=== PATIENT | male | born 1980 | race Caucasian/White ===

== ENCOUNTER 2020-12-22 06:41 | Inpatient (IN) | payer MEDICAID, SELFPAY ==
[2020-12-22] VITALS (17 sets, daily range): BP systolic 98–124; BP diastolic 56–76; PULSE 70–165; RESP 10–27; TEMP 35.8–37.2; O2SAT 88–100; BMI 26.6; BMI 29.5
--- NOTE | ~2020-12-22 | XR_ITS ---
EXAMINATION: XR CHEST CLINICAL INFORMATION: Overdose COMPARISON: None TECHNIQUE: Frontal view of the chest was obtained. FINDINGS: Cardiomediastinal silhouette is normal. There are patchy left greater than right perihilar opacities. No pleural effusion or pneumothorax no acute osseous abnormalities. XR/XR chest 1V IMPRESSION: Patchy, left greater than right, perihilar opacities could represent edema versus developing infiltrate.
--- NOTE | ~2020-12-22 | CT_ITS ---
EXAMINATION: CT HEAD WITHOUT CONTRAST CLINICAL INFORMATION: Altered mental status. Fall. Overdose. COMPARISON: None TECHNIQUE: Contiguous axial imaging was performed from the skull base to vertex without intravenous administration of contrast. This CT examination was performed using dose optimization techniques as appropriate, variously including the following: *Automated exposure control *Adjustment of mA and/or kV according to patient size (this includes techniques or standardized protocols for targeted exams where dose is matched to indication/reason for exam; i.e. extremities or head) *Use of iterative reconstruction technique DLP: 758 mGy-cm FINDINGS: There is no evidence of acute intracranial hemorrhage or territorial infarction. No abnormal mass effect or midline shift is seen. Glass to white matter differentiation is well preserved. No extra-axial fluid collections are identified. The ventricles are normal in size. There is no abnormal attenuation within the brain parenchyma. The osseous structures and soft tissues are normal. The mastoid air cells and visualized portions of the paranasal sinuses are well aerated. CT/CT head/brain wo con IMPRESSION: No acute intracranial pathology.
--- NOTE | ~2020-12-22 | XR_ITS ---
EXAMINATION: XR CHEST CLINICAL INFORMATION: Hypoxia, follow-up pulmonary opacities COMPARISON: Portable chest 12/22/2020 TECHNIQUE: Portable upright AP view of the chest was obtained. FINDINGS: The perihilar opacities noted on prior study have almost completely resolved with some trace residual attenuation right suprahilar region. There is no pneumothorax or pleural reaction or effusion. The costophrenic sulci are well-defined. The heart is normal in size. The vascularity is normal. The hilar and mediastinal contours and bony structures are unremarkable. XR/XR chest 1V IMPRESSION: The perihilar opacities noted on prior study have almost completely resolved with some trace residual attenuation right suprahilar region.
--- NOTE | 2020-12-22 06:45 | ED.OVERDOSE ---
HPI - Overdose General Chief Complaint: Overdose Stated Complaint: OD Time Seen by Provider: 12/22/20 06:44 Source: EMS and per diem interpreter Mode of arrival: EMS Limitations: other (poor historian) History of Present Illness HPI Narrative: EMS notes he is staying with a friend, patient came from [place] 1 month ago - friend didn't even know his name, heard a thud and he was found down immediately EMS noted he was hypoxic in the 30s bagged him woke up after 6mg IN narcan, patient admits to snorting heroin which he doesn't usually do MD complaint: accidental overdose Onset (ago): unknown Timing confirmed by: other (friend he was staying with) Context: Accidental Overdose: wanted to get high Treatments Prior to Arrival: narcan (6mg IN) Related Data Allergies Allergy/AdvReac Type Severity Reaction Status Date / Time No Known Allergies Allergy Verified 12/22/20 06:44 Review of Systems Review of Systems: Constitutional : No Fever, pos Chills ENT/Mouth : No Ear Pain, No Nasal Congestion, No sore throat Eyes: No Eye Pain, No Swelling, No Redness Cardiovascular : No Chest Pain, No SOB Respiratory : No Cough, No Sputum, No Dyspnea Gastrointestinal : pos Nausea, pos Vomiting, No Diarrhea, No Hematochezia, No Melena Genitourinary : No Dysuria, No Urinary Frequency, No Hematuria Musculoskeletal : No Myalgias Skin : No Skin Lesions, No rash Neuro : No Weakness, No Numbness, No Paresthesias, No Dizziness, No Headache Psych : no Anxiety, no Depression, no SI/HI Heme/Lymph: No Lymphadenopathy Endocrine : No Polyuria, No Polydipsia All other systems reviewed and are negative [facility] Past Medical History Attestation statement: The following information was validated with the patient. Medical History Asthma Hepatitis C Social History Social History (Updated 12/22/20 @ 06:53 by Dora Horton DO) Alcohol intake: never Patient Tobacco Use Status: Current everyday Tobacco user Use of substances other than those prescribed or required for medical reasons: Yes Substance Use Type: Heroin Substance Use Frequency: Occasionally Last Used Substance: Just Prior to Admission Advance Directives: No Advance Directives Information Provided: No Physical Exam Vital Signs: Vital Signs: Last Vital Signs Temp 96.5 F L 12/22/20 06:55 Pulse 140 H 12/22/20 08:52 Resp 15 12/22/20 09:33 BP 98/68 12/22/20 08:52 Pulse Ox 90 L 12/22/20 08:52 Oxygen Flow Rate 15 12/22/20 06:55 Body Mass Index 26.6 Appearance: slightly somnolent Oriented X3. Moderate acute distress. Eyes: Pupils equal, round and reactive to light. ENT: Pharynx normal. Neck: Normal inspection. Neck supple. CVS: tachycardic irregular heart rate and rhythm. Pulses normal. Respiratory: No respiratory distress. Breath sounds diffuse end exp wheezes Abdomen: Soft and non-tender. dry heaving at times Skin: Skin cool and moist. Normal skin color. Normal skin turgor. Extremities: No lower extremity edema. No calf ttp Neuro: Oriented X 3. No motor deficit. No sensory deficit. Course Course Course Narrative: patient now in rapid afib/flutter IV dilt ordered at this time BP stable HR down to low 100s post diltiazem BP stable 116/72 has some edema on CXR - will give dose of IV lasix, he is more somnolent with pin point pupils, IV narcan ordered 0.4 738am at this time added on lactcic and blood cultures cannot fully rule out aspiration, patient vomited on arrival - added on zosyn for empiric coverage will start on dilt gtt, HR still 130s lactic acidosis due to overdose and hypoxia not infection or severe sepsis still requiring O2 supplementation, likely admit on venti mask 45% but pulse ox not correlating well with pulse easily woken to voice at this time still hypoxic on 55% venti mask will place on high flow at this time he is awake and alert with verbal responses on high flow 50 - sats 95% Dr. Phillips did see the patient in the ED - will take the patient to the unit Will add on neosynephrine so we can increase his dilt and improve his HR - MDM - Overdose MDM Narrative Medical decision making narrative: 40 yo male with opiate use disorder here with accidental overdose he is tachycardic but wheezing possible exacerbation of asthma vs pulmonary edema post narcan - labs, CXR, COVID swab, xopenex/IV steroids, IV mangesium, currently easily woken will observe the need for repeat doses, his tachycardic is likely reflex post overdose and hypoxia Lab Data Result diagrams: 12/22/20 07:37 12/22/20 07:37 Labs: Lab Results 12/22/20 12/22/20 12/22/20 Range/Units 07:37 07:37 07:37 WBC 17.0 H (4.8-10.8) X10*3/uL RBC 5.47 (4.60-5.80) X10*6/uL Hgb 16.5 (14.0-18.0) g/dl Hct 47.8 (42-52) % MCV 87.4 (80-98) fL MCH 30.2 (27.0-33.0) pg MCHC 34.5 (31.0-36.0) g/dl RDW 12.7 (11.0-16.0) % Plt Count 245 (160-400) X10*3/uL MPV 9.4 (9.4-12.4) fL Immature Gran % (Auto) 0.9 H (0.0-0.4) % Neut % (Auto) 83.8 H (45-73) % Lymph % (Auto) 9.6 L (20-40) % Sunflower % (Auto) 5.4 (2-11) % Eos % (Auto) 0.1 (0-4) % Baso % (Auto) 0.2 (0-2) % Lymph # (Auto) 1.6 (1.2-4.9) X10*3/uL Sunflower # (Auto) 0.9 (0.1-1.2) X10*3/uL Eos # (Auto) 0.0 (0.0-0.4) X10*3/uL Baso # (Auto) 0.0 (0.0-0.2) X10*3/uL Abs Immat Gran (auto) 0.15 H (0.00-0.03) X10*3/uL Absolute Neuts (auto) 14.2 H (2.0-8.3) X10*3/uL Absolute Nucleated RBC 0.000 (0.0-0.012) X10*3/uL Nucleated RBC % (auto) 0.0 (0.0-0.2) /100WBC PT (9.9-13.0) SEC INR (0.9-1.1) APTT (24.1-38.0) SEC O2 Saturation % ABG pH at Pt Temp (7.35-7.45) ABG pH (Temp Correct) (7.35-7.45) ABG pCO2 at Pt Temp (32-45) mmHg ABG pCO2 (Temp Corrct (32-45) mmHg ABG pO2 at Pt Temp (83-108) mmHg ABG pO2 (Temp Correct (83-108) ABG HCO3 (22-26) mmol/L ABG Base Excess (Actual) mmol/L Sodium 139 (135-145) mmol/L Potassium 4.0 (3.3-5.1) mmol/L Chloride 103 (96-108) mmol/L Carbon Dioxide 22 (22-29) mmol/L Anion Gap 18 (12-20) BUN 11 (9-16) mg/dL Creatinine 1.09 (0.5-1.4) mg/dL Estim Creat Clear Calc 82.9 Estimated GFR > 60 Random Glucose 235 H (60-115) mg/dL Lactic Acid (0.5-2.0) mmol/L Calcium 9.1 (8.4-10.2) mg/dL Magnesium 2.7 H (1.6-2.6) mg/dL Total Bilirubin (0.0-1.0) mg/dL Direct Bilirubin (0.0-0.5) mg/dL AST (5-37) U/L ALT (0-40) U/L Alkaline Phosphatase (39-117) U/L Troponin I High Sens (<3.5-35.0) ng/L B-Natriuretic Peptide (<100) pg/mL Total Protein (6.5-8.0) g/dL Albumin (3.5-5.0) g/dL TSH (0.32-4.0) uIU/mL Ethyl Alcohol mg/dL COVID-19 ([facility]) Negative (Negative) COVID-19 Clin Com See Note 12/22/20 12/22/20 12/22/20 Range/Units 07:37 07:37 07:37 WBC (4.8-10.8) X10*3/uL RBC (4.60-5.80) X10*6/uL Hgb (14.0-18.0) g/dl Hct (42-52) % MCV (80-98) fL MCH (27.0-33.0) pg MCHC (31.0-36.0) g/dl RDW (11.0-16.0) % Plt Count (160-400) X10*3/uL MPV (9.4-12.4) fL Immature Gran % (Auto) (0.0-0.4) % Neut % (Auto) (45-73) % Lymph % (Auto) (20-40) % Sunflower % (Auto) (2-11) % Eos % (Auto) (0-4) % Baso % (Auto) (0-2) % Lymph # (Auto) (1.2-4.9) X10*3/uL Sunflower # (Auto) (0.1-1.2) X10*3/uL Eos # (Auto) (0.0-0.4) X10*3/uL Baso # (Auto) (0.0-0.2) X10*3/uL Abs Immat Gran (auto) (0.00-0.03) X10*3/uL Absolute Neuts (auto) (2.0-8.3) X10*3/uL Absolute Nucleated RBC (0.0-0.012) X10*3/uL Nucleated RBC % (auto) (0.0-0.2) /100WBC PT (9.9-13.0) SEC INR (0.9-1.1) APTT (24.1-38.0) SEC O2 Saturation % ABG pH at Pt Temp (7.35-7.45) ABG pH (Temp Correct) (7.35-7.45) ABG pCO2 at Pt Temp (32-45) mmHg ABG pCO2 (Temp Corrct (32-45) mmHg ABG pO2 at Pt Temp (83-108) mmHg ABG pO2 (Temp Correct (83-108) ABG HCO3 (22-26) mmol/L ABG Base Excess (Actual) mmol/L Sodium (135-145) mmol/L Potassium (3.3-5.1) mmol/L Chloride (96-108) mmol/L Carbon Dioxide (22-29) mmol/L Anion Gap (12-20) BUN (9-16) mg/dL Creatinine (0.5-1.4) mg/dL Estim Creat Clear Calc Estimated GFR Random Glucose (60-115) mg/dL Lactic Acid (0.5-2.0) mmol/L Calcium (8.4-10.2) mg/dL Magnesium (1.6-2.6) mg/dL Total Bilirubin 1.7 H (0.0-1.0) mg/dL Direct Bilirubin 0.5 (0.0-0.5) mg/dL AST 51 H (5-37) U/L ALT 149 H (0-40) U/L Alkaline Phosphatase 64 (39-117) U/L Troponin I High Sens < 3.5 (<3.5-35.0) ng/L B-Natriuretic Peptide < 10 (<100) pg/mL Total Protein 7.3 (6.5-8.0) g/dL Albumin 4.4 (3.5-5.0) g/dL TSH 3.37 (0.32-4.0) uIU/mL Ethyl Alcohol < 10 mg/dL COVID-19 ([facility]) (Negative) COVID-19 Clin Com 12/22/20 12/22/20 12/22/20 Range/Units 07:48 08:26 09:17 WBC (4.8-10.8) X10*3/uL RBC (4.60-5.80) X10*6/uL Hgb (14.0-18.0) g/dl Hct (42-52) % MCV (80-98) fL MCH (27.0-33.0) pg MCHC (31.0-36.0) g/dl RDW (11.0-16.0) % Plt Count (160-400) X10*3/uL MPV (9.4-12.4) fL Immature Gran % (Auto) (0.0-0.4) % Neut % (Auto) (45-73) % Lymph % (Auto) (20-40) % Sunflower % (Auto) (2-11) % Eos % (Auto) (0-4) % Baso % (Auto) (0-2) % Lymph # (Auto) (1.2-4.9) X10*3/uL Sunflower # (Auto) (0.1-1.2) X10*3/uL Eos # (Auto) (0.0-0.4) X10*3/uL Baso # (Auto) (0.0-0.2) X10*3/uL Abs Immat Gran (auto) (0.00-0.03) X10*3/uL Absolute Neuts (auto) (2.0-8.3) X10*3/uL Absolute Nucleated RBC (0.0-0.012) X10*3/uL Nucleated RBC % (auto) (0.0-0.2) /100WBC PT 12.7 (9.9-13.0) SEC INR 1.1 (0.9-1.1) APTT 30.9 (24.1-38.0) SEC O2 Saturation 89.0 % ABG pH at Pt Temp 7.32 L (7.35-7.45) ABG pH (Temp Correct) 7.33 L (7.35-7.45) ABG pCO2 at Pt Temp 51 H (32-45) mmHg ABG pCO2 (Temp Corrct 50 H (32-45) mmHg ABG pO2 at Pt Temp 63 L (83-108) mmHg ABG pO2 (Temp Correct 61 L (83-108) ABG HCO3 27 H (22-26) mmol/L ABG Base Excess (Actual) 0.0 mmol/L Sodium (135-145) mmol/L Potassium (3.3-5.1) mmol/L Chloride (96-108) mmol/L Carbon Dioxide (22-29) mmol/L Anion Gap (12-20) BUN (9-16) mg/dL Creatinine (0.5-1.4) mg/dL Estim Creat Clear Calc Estimated GFR Random Glucose (60-115) mg/dL Lactic Acid 3.9 H* (0.5-2.0) mmol/L Calcium (8.4-10.2) mg/dL Magnesium (1.6-2.6) mg/dL Total Bilirubin (0.0-1.0) mg/dL Direct Bilirubin (0.0-0.5) mg/dL AST (5-37) U/L ALT (0-40) U/L Alkaline Phosphatase (39-117) U/L Troponin I High Sens (<3.5-35.0) ng/L B-Natriuretic Peptide (<100) pg/mL Total Protein (6.5-8.0) g/dL Albumin (3.5-5.0) g/dL TSH (0.32-4.0) uIU/mL Ethyl Alcohol mg/dL COVID-19 ([facility]) (Negative) COVID-19 Clin Com ECG Data Attestation: I personally reviewed and interpreted this ECG as follows: ECG interpretation date: 12/22/20 ECG interpretation time: 07:17 Interpretation: Rate: 163 Rhythm: aflutter with variable conduction [place]: normal Normal QRS complex. ST T wave : normal no TATYANA, nonspecific qTC: normal prior studies: no prior The study has been interpreted contemporaneously by me. . Critical Care Time Critical Care Time Critical Care Time: Yes Total Critical Care Time: 90 Attestation: IV diltiazem bolus x 2, IV dilt gtt, O2 supplementation, repeat IV narcan for overdose, repeat assessments, high flow O2, medical consult. I attest to this time spent taking care of the patient Discharge Plan Discharge Clinical Impression: Hypoxia, Atrial fibrillation with rapid ventricular response, Acidosis, lactic Drug overdose Qualifiers: Encounter type: initial encounter Injury intent: accidental or unintentional Qualified Code(s): T50.901A - Poisoning by unspecified drugs, medicaments and biological substances, accidental (unintentional), initial encounter Pulmonary edema Qualifiers: Chronicity: acute Qualified Code(s): J81.0 - Acute pulmonary edema Leukocytosis Qualifiers: Leukocytosis type: unspecified Qualified Code(s): D72.829 - Elevated white blood cell count, unspecified Patient Disposition: Admitted As Inpatient
--- NOTE | 2020-12-22 06:46 | ECG_ITS ---
Test Reason : TACHY Blood Pressure : / mmHG Vent. Rate : 163 BPM Atrial Rate : 159 BPM P-R Int : 000 ms QRS Dur : 082 ms QT Int : 272 ms P-R-T Axes : 000 085 006 degrees QTc Int : 447 ms Atrial fibrillation with rapid ventricular response Abnormal ECG No previous ECGs available Referred By: Dora Horton Electronically Signed By:EDE LORD MD
[2020-12-22] MEDS: ondansetron HCL 4 MG/2 ML VIAL IVPUSH ×2 (07:04→07:09)
[2020-12-22] MEDS: methylPREDNISolone Sod Succ 125 MG/2 ML VIAL IVPUSH (07:09)
[2020-12-22] MEDS: Magnesium Sulfate/H2O 2 GM/50 ML PIGGYBACK IV (07:09)
[2020-12-22] MEDS: dilTIAZem HCL 50 MG/10 ML VIAL 10 MG IVPUSH (07:19)
[2020-12-22] MEDS: Naloxone HCl 0.4 MG/ML VIAL IVPUSH (07:42)
[2020-12-22] MEDS: Furosemide 20 MG/2 ML VIAL IVPUSH (07:42)
[2020-12-22 07:43] LABS: MANUAL DIFF FLAG NO
[2020-12-22 07:45] LABS: Basophils Percent Auto 0.2 % (0-2); Eosinophils Percent Auto 0.1 % (0-4); Hematocrit 47.8 % (42-52); Hemoglobin 16.5 g/dl (14.0-18.0); Imm Gran Abs Auto 0.15 X10*3/uL (0.00-0.03); Imm Gran Pct Auto 0.9 % (0.0-0.4); Lymphocytes Absolute Auto 1.6 X10*3/uL (1.2-4.9); Lymphocytes Percent Auto 9.6 % (20-40); Mean Corpuscular HGB Conc 34.5 g/dl (31.0-36.0); Mean Corpuscular Hemoglobin 30.2 pg (27.0-33.0); Mean Corpuscular Volume 87.4 fL (80-98); Mean Platelet Volume 9.4 fL (9.4-12.4); Monocytes Absolute Auto 0.9 X10*3/uL (0.1-1.2); Monocytes Percent Auto 5.4 % (2-11); Neutrophils Absolute Auto 14.2 X10*3/uL (2.0-8.3); Neutrophils Percent Auto 83.8 % (45-73); Platelet Count 245 X10*3/uL (160-400); Red Blood Count 5.47 X10*6/uL (4.60-5.80); Red Cell Distribution Width 12.7 % (11.0-16.0)
[2020-12-22 07:59] LABS: COVID-19 Test Negative (Negative)
[2020-12-22] MEDS: Piperacillin Sodium/Tazobactam 3.375 GM in 0.9 % Sodium Chloride 50 ML IV (08:00)
[2020-12-22 08:04] LABS: Ethanol < 10 mg/dL
[2020-12-22 08:05] LABS: Anion Gap 18 (12-20); Blood Urea Nitrogen 11 mg/dL (9-16); Calcium 9.1 mg/dL (8.4-10.2); Carbon Dioxide 22 mmol/L (22-29); Chloride 103 mmol/L (96-108); Creatinine Clr Calc Pharmacy 82.9; Estimated Glomerular Filt Rate > 60; Glucose Random 235 mg/dL (60-115); Sodium 139 mmol/L (135-145)
[2020-12-22 08:10] LABS: Alanine Aminotransferase 149 U/L (0-40); Albumin Level 4.4 g/dL (3.5-5.0); Alkaline Phosphatase 64 U/L (39-117); Aspartate Amino Transferase 51 U/L (5-37); Bilirubin Direct 0.5 mg/dL (0.0-0.5); Bilirubin Total 1.7 mg/dL (0.0-1.0); Total Protein 7.3 g/dL (6.5-8.0)
[2020-12-22 08:11] LABS: B Type Natriuretic Peptide < 10 pg/mL (<100); Troponin-I High Sensitivity < 3.5 ng/L (<3.5-35.0)
[2020-12-22 08:15] LABS: Lactic Acid 3.9 mmol/L (0.5-2.0)
[2020-12-22 08:22] LABS: Magnesium 2.7 mg/dL (1.6-2.6)
[2020-12-22 08:27] LABS: TSH reflex Free T4 3.37 uIU/mL (0.32-4.0)
[2020-12-22] MEDS: dilTIAZem HCL 125 MG in 0.9 % Sodium Chloride 100 ML 10 MG IVCONT (08:36)
[2020-12-22 08:44] LABS: INTERNATIONAL NORM RATIO 1.1 (0.9-1.1); Prothrombin Time 12.7 SEC (9.9-13.0)
[2020-12-22 08:46] LABS: Partial Thromboplastin Time 30.9 SEC (24.1-38.0)
[2020-12-22 09:23] LABS: ABG HCO3 27 mmol/L (22-26); ABG pCO2 51 mmHg (32-45); ABG pCO2 TC 50 mmHg (32-45); ABG pH 7.32 (7.35-7.45); ABG pH TC 7.33 (7.35-7.45); ABG pO2 63 mmHg (83-108); ABG pO2 TC 61 (83-108)
[2020-12-22 09:49] LABS: Amphetamine Screen Urine Not Detected (Not Detect); Barbiturates, Urine Not Detected (Not Detect); Benzodiazepines Screen Urine Not Detected (Not Detect); Cannabinoid Screen Urine POSITIVE (Not Detect); Cocaine Screen Urine Not Detected (Not Detect); Opiate Screen Urine POSITIVE (Not Detect); Phencyclidine Screen Urine Not Detected (Not Detect)
[2020-12-22 09:51] LABS: Reflex Lactate? Lactic Acid Added
--- NOTE | 2020-12-22 09:51 | PM.CCHP ---
History of Present Illness Date of Service: 12/22/20 Chief Complaint: altered mental status 40-year-old recently here from [place] found with altered mental status depress respiration probable emesis with aspiration at was bagged on his way to the emergency room where he received Narcan who with partial effect so he received it repeatedly with positive affect but required high FiO2 still relatively hypoventilatory with altered mental status and acute hypoxic respiratory failure and scattered bilateral infiltrates probable consolidation which would be primarily consistent with either pulmonary edema or aspiration and of course he admitted to heroin use and we have a pending toxicology also in acute new onset atrial fibrillation with rapid ventricular response on an initial dose of IV Cardizem with heart rates as high as 180 but my bedside echo revealed normal LV and RV function with no primary valve or pericardial disease Review of Systems Review of Systems: Yes Unobtainable due to mental status PMFSH Past Medical History Medical History Asthma Hepatitis C Social History Social History (Updated 12/22/20 @ 06:53 by Dora Horton DO) Alcohol intake: never Patient Tobacco Use Status: Current everyday Tobacco user Use of substances other than those prescribed or required for medical reasons: Yes Substance Use Type: Heroin Substance Use Frequency: Occasionally Last Used Substance: Just Prior to Admission Advance Directives: No Advance Directives Information Provided: No Meds Allergies Allergy/AdvReac Type Severity Reaction Status Date / Time No Known Allergies Allergy Verified 12/22/20 06:44 Active Medications: Current Medications Generic Name Dose Route Start Last Admin Trade Name Freq PRN Reason Stop Dose Admin Diltiazem HCl 125 mg/ Sodium 125 mls @ 0 mls/hr 12/22/20 08:15 12/22/20 09:48 Chloride IVCONT 10 mg/hr .Q0M DENISE 10 mls/hr Titration Protocol Per Protocol Phenylephrine HCl 20 mg/ 252 mls @ 0 mls/hr 12/22/20 10:00 Sodium Chloride IVCONT .Q0M DENISE Protocol Per Protocol Dextrose/Sodium Chloride 1,000 mls @ 100 mls/hr 12/22/20 09:45 D5ns IVCONT .Q10H DENISE Piperacillin Sod/Tazobactam 100 mls @ 200 mls/hr 12/22/20 09:45 Sod 4.5 gm/ Sodium Chloride IV Q6H DENISE Phenylephrine HCl 20 mg/ 252 mls @ 0 mls/hr 12/22/20 09:45 Sodium Chloride IVCONT .Q0M [facility] Protocol Per Protocol Physical Exam Vital Signs: Vital Signs: Last Vital Signs Temp 96.5 F L 12/22/20 06:55 Pulse 142 H 12/22/20 09:49 Resp 20 12/22/20 09:49 BP 111/70 12/22/20 09:49 Pulse Ox 93 12/22/20 09:49 Oxygen Flow Rate 15 12/22/20 06:55 Body Mass Index 26.6 arousable to soft voice and to touch and nonfocal neurologically LV and RV function normal by bedside echo scattered bilateral rales as well as bilateral expiratory wheezing abdomen benign soft with good bowel sounds and no organomegaly peripheral eat no evidence of injection sites no cellulitis no acrocyanosis Results Labs CBC and Chem 7: 12/22/20 07:37 12/22/20 07:37 Labs: Laboratory Results - last 24 hr 12/22/20 12/22/20 12/22/20 07:37 07:37 07:37 MCV 87.4 MCH 30.2 MCHC 34.5 RDW 12.7 Plt Count 245 MPV 9.4 Immature Gran % (Auto) 0.9 H Neut % (Auto) 83.8 H Lymph % (Auto) 9.6 L [place] % (Auto) 5.4 Eos % (Auto) 0.1 Baso % (Auto) 0.2 Lymph # (Auto) 1.6 [place] # (Auto) 0.9 Eos # (Auto) 0.0 Baso # (Auto) 0.0 Abs Immat Gran (auto) 0.15 H Absolute Neuts (auto) 14.2 H Absolute Nucleated RBC 0.000 Nucleated RBC % (auto) 0.0 PT INR APTT O2 Saturation ABG pH at Pt Temp ABG pH (Temp Correct) ABG pCO2 at Pt Temp ABG pCO2 (Temp Corrct ABG pO2 at Pt Temp ABG pO2 (Temp Correct ABG HCO3 ABG Base Excess (Actual) Anion Gap 18 Estim Creat Clear Calc 82.9 Estimated GFR > 60 Random Glucose 235 H Lactic Acid Calcium 9.1 Magnesium 2.7 H Total Bilirubin Direct Bilirubin AST ALT Alkaline Phosphatase Troponin I High Sens B-Natriuretic Peptide Total Protein Albumin TSH Urine Opiates Screen Ur Barbiturates Screen Ur Phencyclidine Scrn Ur Amphetamines Screen U Benzodiazepines Scrn Urine Cocaine Screen U Marijuana (THC) Screen Ethyl Alcohol COVID-19 ([facility]) Negative COVID-19 Clin Com See Note 12/22/20 12/22/20 12/22/20 07:37 07:37 07:37 MCV MCH MCHC RDW Plt Count MPV Immature Gran % (Auto) Neut % (Auto) Lymph % (Auto) [place] % (Auto) Eos % (Auto) Baso % (Auto) Lymph # (Auto) [place] # (Auto) Eos # (Auto) Baso # (Auto) Abs Immat Gran (auto) Absolute Neuts (auto) Absolute Nucleated RBC Nucleated RBC % (auto) PT INR APTT O2 Saturation ABG pH at Pt Temp ABG pH (Temp Correct) ABG pCO2 at Pt Temp ABG pCO2 (Temp Corrct ABG pO2 at Pt Temp ABG pO2 (Temp Correct ABG HCO3 ABG Base Excess (Actual) Anion Gap Estim Creat Clear Calc Estimated GFR Random Glucose Lactic Acid Calcium Magnesium Total Bilirubin 1.7 H Direct Bilirubin 0.5 AST 51 H ALT 149 H Alkaline Phosphatase 64 Troponin I High Sens < 3.5 B-Natriuretic Peptide < 10 Total Protein 7.3 Albumin 4.4 TSH 3.37 Urine Opiates Screen Ur Barbiturates Screen Ur Phencyclidine Scrn Ur Amphetamines Screen U Benzodiazepines Scrn Urine Cocaine Screen U Marijuana (THC) Screen Ethyl Alcohol < 10 COVID-19 ([facility]) COVID-19 Clin Com 12/22/20 12/22/20 12/22/20 07:48 08:26 09:17 MCV MCH MCHC RDW Plt Count MPV Immature Gran % (Auto) Neut % (Auto) Lymph % (Auto) [place] % (Auto) Eos % (Auto) Baso % (Auto) Lymph # (Auto) [place] # (Auto) Eos # (Auto) Baso # (Auto) Abs Immat Gran (auto) Absolute Neuts (auto) Absolute Nucleated RBC Nucleated RBC % (auto) PT 12.7 INR 1.1 APTT 30.9 O2 Saturation ABG pH at Pt Temp ABG pH (Temp Correct) ABG pCO2 at Pt Temp ABG pCO2 (Temp Corrct ABG pO2 at Pt Temp ABG pO2 (Temp Correct ABG HCO3 ABG Base Excess (Actual) Anion Gap Estim Creat Clear Calc Estimated GFR Random Glucose Lactic Acid 3.9 H* Calcium Magnesium Total Bilirubin Direct Bilirubin AST ALT Alkaline Phosphatase Troponin I High Sens B-Natriuretic Peptide Total Protein Albumin TSH Urine Opiates Screen POSITIVE H Ur Barbiturates Screen Not Detected Ur Phencyclidine Scrn Not Detected Ur Amphetamines Screen Not Detected U Benzodiazepines Scrn Not Detected Urine Cocaine Screen Not Detected U Marijuana (THC) Screen POSITIVE H Ethyl Alcohol COVID-19 ([facility]) COVID-19 [place] 12/22/20 09:17 MCV MCH MCHC RDW Plt Count MPV Immature Gran % (Auto) Neut % (Auto) Lymph % (Auto) [place] % (Auto) Eos % (Auto) Baso % (Auto) Lymph # (Auto) [place] # (Auto) Eos # (Auto) Baso # (Auto) Abs Immat Gran (auto) Absolute Neuts (auto) Absolute Nucleated RBC Nucleated RBC % (auto) PT INR APTT O2 Saturation 89.0 ABG pH at Pt Temp 7.32 L ABG pH (Temp Correct) 7.33 L ABG pCO2 at Pt Temp 51 H ABG pCO2 (Temp Corrct 50 H ABG pO2 at Pt Temp 63 L ABG pO2 (Temp Correct 61 L ABG HCO3 27 H ABG Base Excess (Actual) 0.0 Anion Gap Estim Creat Clear Calc Estimated GFR Random Glucose Lactic Acid Calcium Magnesium Total Bilirubin Direct Bilirubin AST ALT Alkaline Phosphatase Troponin I High Sens B-Natriuretic Peptide Total Protein Albumin TSH Urine Opiates Screen Ur Barbiturates Screen Ur Phencyclidine Scrn Ur Amphetamines Screen U Benzodiazepines Scrn Urine Cocaine Screen U Marijuana (THC) Screen Ethyl Alcohol COVID-19 ([facility]) COVID-19 Clin Com Imaging Radiologist's Impressions: Impressions Chest X-Ray 12/22/20 06:44 IMPRESSION: Patchy, left greater than right, perihilar opacities could represent edema versus developing infiltrate. Head CT 12/22/20 06:46 IMPRESSION: No acute intracranial pathology. Assessment and Plan (1) Drug overdose: Qualifiers: Encounter type: initial encounter Injury intent: accidental or unintentional Qualified Code(s): T50.901A - Poisoning by unspecified drugs, medicaments and biological substances, accidental (unintentional), initial encounter Status: Acute (2) Hypoxia: Status: Acute (3) Atrial fibrillation with rapid ventricular response: Status: Acute (4) Pulmonary edema: Qualifiers: Chronicity: acute Qualified Code(s): J81.0 - Acute pulmonary edema Status: Acute (5) Leukocytosis: Qualifiers: Leukocytosis type: unspecified Qualified Code(s): D72.829 - Elevated white blood cell count, unspecified Status: Acute (6) Acidosis, lactic: Status: Acute (7) Aspiration pneumonia due to regurgitated gastric secretions: Status: Acute (8) Acute and chronic respiratory failure with hypoxia: Status: Acute (9) Acute metabolic encephalopathy: Status: Acute the plan is to empirically start a phenylephrine drip for blood pressure preservation continue to treat with Zosyn and famotidine for the aspiration issue and start nasal high-flow oxygen and p.r.n. Narcan as we await the rest of his toxicology screen and continue with IV Cardizem titrated to heart rate of 100-120 and between that and phenylephrine hopefully will spontaneously convert to sinus rhythm
[2020-12-22 09:57] LABS: ABG Refer to POC result
[2020-12-22] MEDS: Dextrose 5 % and 0.9 % NaCl 1,000 ML 100 ML IVCONT ×2 (10:02→19:36)
[2020-12-22] MEDS: Phenylephrine HCL 20 MG in 0.9 % Sodium Chloride 250 ML 28.29 MG IVCONT (10:16)
[2020-12-22 11:09] LABS: ~Lactic Acid-LAB USE ONLY 2.9 mmol/L (0.5-2.0)
--- NOTE | 2020-12-22 11:20 | ECG_ITS ---
Test Reason : rhythm change Blood Pressure : / mmHG Vent. Rate : 068 BPM Atrial Rate : 068 BPM P-R Int : 152 ms QRS Dur : 080 ms QT Int : 368 ms P-R-T Axes : 019 079 045 degrees QTc Int : 391 ms Normal sinus rhythm Normal ECG When compared with ECG of 22-DEC-2020 07:15, Sinus rhythm has replaced Atrial fibrillation Vent. rate has decreased BY 95 BPM Referred By: Tej Phillips Electronically Signed By:GONZALEZ HOPE
[2020-12-22] MEDS: Famotidine/PF 20 MG/2 ML VIAL IVPUSH ×2 (11:22→19:31)
[2020-12-22] MEDS: 0.9 % Sodium Chloride 500 ML 250 ML IV (12:16)
[2020-12-22 12:39] LABS: Reflex Lactate? 2 Y
--- NOTE | 2020-12-22 12:52 | PC.NURSE ---
patient given the 500ml NACL, meditech not allowing this nurse to scan the fluids in.
[2020-12-22 13:26] LABS: ~Lactic Acid-LAB USE ONLY 3.3 mmol/L (0.5-2.0)
[2020-12-22] MEDS: Piperacillin Sodium/Tazobactam 4.5 GM in 0.9 % Sodium Chloride 100 ML IV ×2 (14:46→19:25)
[2020-12-23] VITALS (12 sets, daily range): BP systolic 102–143; BP diastolic 52–67; PULSE 82–202; RESP 16–18; TEMP 36.6–37.2; O2SAT 92–99; BMI 27.8
--- NOTE | 2020-12-23 | ECG_ITS ---
Test Reason : Tachycardia Blood Pressure : / mmHG Vent. Rate : 191 BPM Atrial Rate : 187 BPM P-R Int : 000 ms QRS Dur : 074 ms QT Int : 240 ms P-R-T Axes : 000 079 073 degrees QTc Int : 428 ms Supraventricular tachycardia Nonspecific ST and T wave abnormality Abnormal ECG When compared with ECG of 22-DEC-2020 11:20, Rhythm change Referred By: Renée Galan Electronically Signed By:GONZALEZ HOPE
[2020-12-23] MEDS: Piperacillin Sodium/Tazobactam 4.5 GM in 0.9 % Sodium Chloride 100 ML IV ×2 (01:46→08:01)
[2020-12-23] MEDS: Dextrose 5 % and 0.9 % NaCl 1,000 ML 100 ML IVCONT (05:01)
[2020-12-23 05:51] LABS: Hemoglobin 13.5 g/dl (14.0-18.0); Mean Corpuscular HGB Conc 34.6 g/dl (31.0-36.0); Mean Corpuscular Hemoglobin 30.1 pg (27.0-33.0); Mean Corpuscular Volume 87.1 fL (80-98); Mean Platelet Volume 10.4 fL (9.4-12.4); Platelet Count 187 X10*3/uL (160-400); Red Blood Count 4.48 X10*6/uL (4.60-5.80); Red Cell Distribution Width 12.6 % (11.0-16.0); White Blood Count 12.5 X10*3/uL (4.8-10.8)
[2020-12-23 06:35] LABS: Anion Gap 12 (12-20); Blood Urea Nitrogen 11 mg/dL (9-16); Calcium 8.9 mg/dL (8.4-10.2); Carbon Dioxide 25 mmol/L (22-29); Chloride 105 mmol/L (96-108); Creatinine Clr Calc Pharmacy 121.7; Estimated Glomerular Filt Rate > 60; Glucose Random 112 mg/dL (60-115); Potassium 4.3 mmol/L (3.3-5.1); Sodium 138 mmol/L (135-145)
[2020-12-23 06:36] LABS: Alanine Aminotransferase 99 U/L (0-40); Albumin Level 3.6 g/dL (3.5-5.0); Alkaline Phosphatase 47 U/L (39-117); Aspartate Amino Transferase 25 U/L (5-37); Bilirubin Direct 0.8 mg/dL (0.0-0.5); Bilirubin Total 2.6 mg/dL (0.0-1.0)
[2020-12-23] MEDS: Famotidine/PF 20 MG/2 ML VIAL IVPUSH ×2 (08:02→20:44)
[2020-12-23] MEDS: methylPREDNISolone Sod Succ 40 MG/ML VIAL IVPUSH ×2 (10:45→23:19)
[2020-12-23] MEDS: Albuterol/Iprat 2.5/0.5MG 3 ML AMPUL.NEB INHALE ×2 (11:06→19:50)
--- NOTE | 2020-12-23 11:27 | MHC.CM.PN ---
CM met with Patient at bedside with a Hand Decorator.Patient is new to [facility], just moved to the [facility] from [place]. Patient has no PCP and no insurance (a referral has been made to [facility]). Patient is living in an apartment with a Friend and his goal for dc is to return there, no services. CM has initiated and will follow for dc planning. Patient has used Heroin and may benefit from a Care Team Consult. 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
--- NOTE | 2020-12-23 12:56 | HO.ADDICTCON ---
History of Present Illness Date of Service: 12/23/2020 Chief Complaint: Hypoxic respiratory failure Rapid AFIB Reason for Consult: opioid overdose Requesting physician: Renée Galan Discussed with referring provider: No Sources of Information: patient interviewed and chart reviewed HPI Narrative: Patient is a 40-year-old Dominican-speaking male, currently medically admitted following an accidental opioid overdose. Patient seen in room 445, friend present during interview, patient reporting that it was okay to discuss this topic in front of her as she is the 1 who found him. Patient reports that he does not have an issue with using substances. He reports that he came upon the bag of heroin and had always wanted to try it and it appears that after he tried it is when he ended up in the hospital. He denies any previous history of using opiates. Denies any cocaine use --states the last time was over 10 years ago. Denies any issues with alcohol. He denies any history of treatment. He reports that this was a bad decision with curiosity . Past Psychiatric History: Denies Medical Evaluation Reviewed: Yes Personal & Social History: reports he recently moved here from [place], has been staying in [place] --was in [place] visiting his friend. Review of Systems Review of Systems Denies any withdrawal symptoms. Denies any anxiety. Diagnostics Vital Signs (24Hr): Vital Signs - 24 hr 12/22/20 13:00 12/22/20 13:41 12/22/20 14:53 Temperature 97.7 F Pulse Rate 78 79 Respiratory Rate 11 L 17 Blood Pressure 108/67 104/63 108/57 L Pulse Oximetry 98 95 12/22/20 19:20 12/22/20 23:40 12/23/20 03:42 Temperature 98.4 F 97.2 F 97.9 F Pulse Rate 86 77 84 Respiratory Rate 17 18 18 Blood Pressure 104/56 L 111/65 102/54 L Pulse Oximetry 100 96 92 12/23/20 07:03 12/23/20 11:09 12/23/20 11:15 Temperature 98.8 F 98.4 F Pulse Rate 89 89 82 Respiratory Rate 16 18 Blood Pressure 107/57 L 110/59 L Pulse Oximetry 98 97 12/23/20 12:31 Temperature Pulse Rate Respiratory Rate Blood Pressure Pulse Oximetry 95 Body Mass Index 27.8 Labs Results: 12/23/20 05:13 12/23/20 05:14 Labs: Laboratory Results - last 48 hr 12/22/20 12/22/20 12/22/20 07:37 07:37 07:37 WBC 17.0 H RBC 5.47 Hgb 16.5 Hct 47.8 MCV 87.4 MCH 30.2 MCHC 34.5 RDW 12.7 Plt Count 245 MPV 9.4 Immature Gran % (Auto) 0.9 H Neut % (Auto) 83.8 H Lymph % (Auto) 9.6 L [place] % (Auto) 5.4 Eos % (Auto) 0.1 Baso % (Auto) 0.2 Lymph # (Auto) 1.6 [place] # (Auto) 0.9 Eos # (Auto) 0.0 Baso # (Auto) 0.0 Abs Immat Gran (auto) 0.15 H Absolute Neuts (auto) 14.2 H Absolute Nucleated RBC 0.000 Nucleated RBC % (auto) 0.0 PT INR APTT O2 Saturation ABG pH at Pt Temp ABG pH (Temp Correct) ABG pCO2 at Pt Temp ABG pCO2 (Temp Corrct ABG pO2 at Pt Temp ABG pO2 (Temp Correct ABG HCO3 ABG Base Excess (Actual) Sodium 139 Potassium 4.0 Chloride 103 Carbon Dioxide 22 Anion Gap 18 BUN 11 Creatinine 1.09 Estim Creat Clear Calc 82.9 Estimated GFR > 60 Random Glucose 235 H Lactic Acid Lactic Acid Fup @ 2Hr Lactic Acid Fup @ 4Hr Calcium 9.1 Magnesium 2.7 H Total Bilirubin Direct Bilirubin AST ALT Alkaline Phosphatase Troponin I High Sens B-Natriuretic Peptide Total Protein Albumin TSH Urine Opiates Screen Ur Barbiturates Screen Ur Phencyclidine Scrn Ur Amphetamines Screen U Benzodiazepines Scrn Urine Cocaine Screen U Marijuana (THC) Screen Ethyl Alcohol COVID-19 ([facility]) Negative COVID-19 Clin Com See Note 12/22/20 12/22/20 12/22/20 07:37 07:37 07:37 WBC RBC Hgb Hct MCV MCH MCHC RDW Plt Count MPV Immature Gran % (Auto) Neut % (Auto) Lymph % (Auto) [place] % (Auto) Eos % (Auto) Baso % (Auto) Lymph # (Auto) [place] # (Auto) Eos # (Auto) Baso # (Auto) Abs Immat Gran (auto) Absolute Neuts (auto) Absolute Nucleated RBC Nucleated RBC % (auto) PT INR APTT O2 Saturation ABG pH at Pt Temp ABG pH (Temp Correct) ABG pCO2 at Pt Temp ABG pCO2 (Temp Corrct ABG pO2 at Pt Temp ABG pO2 (Temp Correct ABG HCO3 ABG Base Excess (Actual) Sodium Potassium Chloride Carbon Dioxide Anion Gap BUN Creatinine Estim Creat Clear Calc Estimated GFR Random Glucose Lactic Acid Lactic Acid Fup @ 2Hr Lactic Acid Fup @ 4Hr Calcium Magnesium Total Bilirubin 1.7 H Direct Bilirubin 0.5 AST 51 H ALT 149 H Alkaline Phosphatase 64 Troponin I High Sens < 3.5 B-Natriuretic Peptide < 10 Total Protein 7.3 Albumin 4.4 TSH 3.37 Urine Opiates Screen Ur Barbiturates Screen Ur Phencyclidine Scrn Ur Amphetamines Screen U Benzodiazepines Scrn Urine Cocaine Screen U Marijuana (THC) Screen Ethyl Alcohol < 10 COVID-19 ([facility]) COVID-19 [facility] 12/22/20 12/22/20 12/22/20 07:48 08:26 09:17 WBC RBC Hgb Hct MCV MCH MCHC RDW Plt Count MPV Immature Gran % (Auto) Neut % (Auto) Lymph % (Auto) [place] % (Auto) Eos % (Auto) Baso % (Auto) Lymph # (Auto) [place] # (Auto) Eos # (Auto) Baso # (Auto) Abs Immat Gran (auto) Absolute Neuts (auto) Absolute Nucleated RBC Nucleated RBC % (auto) PT 12.7 INR 1.1 APTT 30.9 O2 Saturation ABG pH at Pt Temp ABG pH (Temp Correct) ABG pCO2 at Pt Temp ABG pCO2 (Temp Corrct ABG pO2 at Pt Temp ABG pO2 (Temp Correct ABG HCO3 ABG Base Excess (Actual) Sodium Potassium Chloride Carbon Dioxide Anion Gap BUN Creatinine Estim Creat Clear Calc Estimated GFR Random Glucose Lactic Acid 3.9 H* Lactic Acid Fup @ 2Hr Lactic Acid Fup @ 4Hr Calcium Magnesium Total Bilirubin Direct Bilirubin AST ALT Alkaline Phosphatase Troponin I High Sens B-Natriuretic Peptide Total Protein Albumin TSH Urine Opiates Screen POSITIVE H Ur Barbiturates Screen Not Detected Ur Phencyclidine Scrn Not Detected Ur Amphetamines Screen Not Detected U Benzodiazepines Scrn Not Detected Urine Cocaine Screen Not Detected U Marijuana (THC) Screen POSITIVE H Ethyl Alcohol COVID-19 ([facility]) COVID-19 Clin Com 12/22/20 12/22/20 12/22/20 09:17 10:29 12:48 WBC RBC Hgb Hct MCV MCH MCHC RDW Plt Count MPV Immature Gran % (Auto) Neut % (Auto) Lymph % (Auto) [place] % (Auto) Eos % (Auto) Baso % (Auto) Lymph # (Auto) [place] # (Auto) Eos # (Auto) Baso # (Auto) Abs Immat Gran (auto) Absolute Neuts (auto) Absolute Nucleated RBC Nucleated RBC % (auto) PT INR APTT O2 Saturation 89.0 ABG pH at Pt Temp 7.32 L ABG pH (Temp Correct) 7.33 L ABG pCO2 at Pt Temp 51 H ABG pCO2 (Temp Corrct 50 H ABG pO2 at Pt Temp 63 L ABG pO2 (Temp Correct 61 L ABG HCO3 27 H ABG Base Excess (Actual) 0.0 Sodium Potassium Chloride Carbon Dioxide Anion Gap BUN Creatinine Estim Creat Clear Calc Estimated GFR Random Glucose Lactic Acid Lactic Acid Fup @ 2Hr 2.9 H* Lactic Acid Fup @ 4Hr 3.3 H* Calcium Magnesium Total Bilirubin Direct Bilirubin AST ALT Alkaline Phosphatase Troponin I High Sens B-Natriuretic Peptide Total Protein Albumin TSH Urine Opiates Screen Ur Barbiturates Screen Ur Phencyclidine Scrn Ur Amphetamines Screen U Benzodiazepines Scrn Urine Cocaine Screen U Marijuana (THC) Screen Ethyl Alcohol COVID-19 ([facility]) COVID-19 Clin Com 12/23/20 12/23/20 12/23/20 05:13 05:13 05:14 WBC 12.5 H RBC 4.48 L Hgb 13.5 L Hct 39.0 L MCV 87.1 MCH 30.1 MCHC 34.6 RDW 12.6 Plt Count 187 MPV 10.4 Immature Gran % (Auto) Neut % (Auto) Lymph % (Auto) [place] % (Auto) Eos % (Auto) Baso % (Auto) Lymph # (Auto) [place] # (Auto) Eos # (Auto) Baso # (Auto) Abs Immat Gran (auto) Absolute Neuts (auto) Absolute Nucleated RBC 0.000 Nucleated RBC % (auto) 0.0 PT INR APTT O2 Saturation ABG pH at Pt Temp ABG pH (Temp Correct) ABG pCO2 at Pt Temp ABG pCO2 (Temp Corrct ABG pO2 at Pt Temp ABG pO2 (Temp Correct ABG HCO3 ABG Base Excess (Actual) Sodium 138 Potassium 4.3 Chloride 105 Carbon Dioxide 25 Anion Gap 12 BUN 11 Creatinine 0.81 Estim Creat Clear Calc 121.7 Estimated GFR > 60 Random Glucose 112 D Lactic Acid Lactic Acid Fup @ 2Hr Lactic Acid Fup @ 4Hr Calcium 8.9 Magnesium Total Bilirubin 2.6 H Direct Bilirubin 0.8 H AST 25 D ALT 99 H Alkaline Phosphatase 47 D Troponin I High Sens B-Natriuretic Peptide Total Protein 6.0 L Albumin 3.6 TSH Urine Opiates Screen Ur Barbiturates Screen Ur Phencyclidine Scrn Ur Amphetamines Screen U Benzodiazepines Scrn Urine Cocaine Screen U Marijuana (THC) Screen Ethyl Alcohol COVID-19 ([facility]) COVID-19 Clin Com Imaging Radiology Impressions: ITS Impressions Chest X-Ray 12/22/20 06:44 IMPRESSION: Patchy, left greater than right, perihilar opacities could represent edema versus developing infiltrate. Head CT 12/22/20 06:46 IMPRESSION: No acute intracranial pathology. Mental Status Exam Mental Status Exam Patient Appearance: Appropriate Patient Orientation: Person, Place, Time and Situation Level of Consciousness: Awake, Appropriate and Alert Patient Behavior: Appropriate Mood Description: Appropriate Affect Description: Appropriate Ability to Follow Directions: Excellent Speech Pattern: Clear Thought Content: positive for Intact Judgement: Fair Medications Medications Current Medications Generic Name Dose Route Start Last Admin Trade Name Freq PRN Reason Stop Dose Admin Albuterol Sulfate 2.5 mg 12/23/20 10:05 Albuterol Sulfate (0.083%) 2.5 Mg/3 Ml Vial.Neb INHALE RQ4H PRN Shortness of Breath/Wheezing Albuterol/Ipratropium 3 ml 12/23/20 12:00 12/23/20 11:06 Albuterol/Iprat 2.5/0.5mg 3 Ml Ampul.Neb INHALE 3 ml RQ6H DENISE Administration Famotidine 20 mg 12/22/20 10:30 12/23/20 08:02 Famotidine/Pf 20 Mg/2 Ml Vial IVPUSH 20 mg BID DENISE Administration Piperacillin Sod/Tazobactam 100 mls @ 200 mls/hr 12/23/20 14:05 Sod 3.375 gm/ Sodium Chloride IV Q6H DENISE Methylprednisolone Sodium Succinate 40 mg 12/23/20 10:15 12/23/20 10:45 Methylprednisolone Sod Succ 40 Mg/Ml Vial IVPUSH 40 mg Q12H DENISE Administration Allergies Allergies Allergy/AdvReac Type Severity Reaction Status Date / Time No Known Allergies Allergy Verified 12/22/20 06:44 Assessment & Plan Assessment & Plan (1) Drug overdose: Qualifiers: Encounter type: initial encounter Injury intent: accidental or unintentional Qualified Code(s): T50.901A - Poisoning by unspecified drugs, medicaments and biological substances, accidental (unintentional), initial encounter Status: Acute Code(s): T50.901A - Poisoning by unspecified drugs, medicaments and biological substances, accidental (unintentional), initial encounter Recommendations: Patient declines any referrals are additional information at this time discussed take home Narcan, agreeable to having some. Greater than 50% of the session was spent on counseling and/or coordination of care PMFSH Past Medical History Medical History Asthma Hepatitis C Social History Social History (Updated 12/22/20 @ 06:53 by Dora Horton DO) Household Members: Friend(s) Housing: Apartment Do you presently have visiting nurse or other home services: No Alcohol intake: never Patient Tobacco Use Status: Current everyday Tobacco user Tobacco use type: Cigarette Cigarettes Per Day: 5 Smoked in Last 30 Days: Yes e-Cigarette/Vaping Use: Never Used Patient Interested in Nicotine Replacement: No Patient Given Instructions on How to Stop Smoking: Yes Date Education Initiated: 12/22/20 Use of substances other than those prescribed or required for medical reasons: Yes Substance Use Type: Heroin and Marijuana Substance Use Frequency: Occasionally Last Used Substance: Just Prior to Admission Currently Displaying Signs/Symptoms of Drug Intoxication Withdrawal: No Any prior treatment program specific to substance use: No Have you been hit, kicked, punched, or otherwise hurt by someone within the past year? If so, by whom?: No Do you feel safe in your current relationship?: No Current Relationship Is there a partner from a previous relationship who is making you feel unsafe now?: No Are you made to feel afraid or neglected: No Spiritual Healthcare Practices: none per patient Jew Healthcare Practices: none per patient Cultural Healthcare Practices: none per patient Advance Directives: No Advance Directives Information Provided: No Advance Directives on File: No Do you have thoughts of harming others: None Do you have a plan to hurt others: No Plan Recently lost weight without trying: No Eating poorly because of decreased appetite: No Nutrition Risks: No Nutritional Risk Poor oral hygiene: Yes service: No Current occupational status: employed
[2020-12-23] MEDS: Metoprolol Tartrate 5 MG/5 ML VIAL IVPUSH (13:16)
[2020-12-23] MEDS: Adenosine 6 MG/2 ML VIAL 12 MG IVPUSH (13:16)
--- NOTE | 2020-12-23 13:36 | HO.PM.IMPN ---
Subjective Subjective Date of Service: 12/23/20 Interval History: the patient was seen and evaluated this morning Laying in bed, complaining of bloody streaks with coughing developed an episode of SVT with heart rate around 200 responded to Adinosine Denies any fever, chills but complaining of dyspnea No reported other overnight events. Systemic review: No fever, chills or weakness No chest pain, had an episode of palpitation dyspnea on exertion, bloody streaks with cough No abdominal pain, nausea or vomiting No urinary symptoms No any rash or wounds Physical Exam Vital Signs: Vital Signs: Last Vital Signs Temp 98.4 F 12/23/20 11:15 Pulse 96 12/23/20 13:20 Resp 18 12/23/20 11:15 BP 116/60 12/23/20 13:20 Pulse Ox 95 12/23/20 12:31 Oxygen Flow Rate 15 12/22/20 06:55 Body Mass Index 27.8 Const: Other: Constitutional : Alert, oriented, in mild distress Neck : Normal inspection, Supple Cardiovascular : RRR, S1 S2, no lower extremity edema Respiratory : decreased bilateral air entry, bases bilaterally fine crackles, fine expiratory rhonchi Gastrointestinal: soft, lax, Normal bowel sounds, Non tender Skin : Warm/Dry, No rash Neurological : Alert & oriented x3, No focal deficit Objective Data Current Medications Generic Name Dose Route Start Last Admin Trade Name Freq PRN Reason Stop Dose Admin Albuterol Sulfate 2.5 mg 12/23/20 10:05 Albuterol Sulfate (0.083%) 2.5 Mg/3 Ml Vial.Neb INHALE RQ4H PRN Shortness of Breath/Wheezing Albuterol/Ipratropium 3 ml 12/23/20 12:00 12/23/20 11:06 Albuterol/Iprat 2.5/0.5mg 3 Ml Ampul.Neb INHALE 3 ml RQ6H DENISE Administration Famotidine 20 mg 12/22/20 10:30 12/23/20 08:02 Famotidine/Pf 20 Mg/2 Ml Vial IVPUSH 20 mg BID DENISE Administration Piperacillin Sod/Tazobactam 100 mls @ 200 mls/hr 12/23/20 14:05 Sod 3.375 gm/ Sodium Chloride IV Q6H DENISE Methylprednisolone Sodium Succinate 40 mg 12/23/20 10:15 12/23/20 10:45 Methylprednisolone Sod Succ 40 Mg/Ml Vial IVPUSH 40 mg Q12H DENISE Administration Labs CBC & Chem 7: 12/23/20 05:13 12/23/20 05:14 Labs: Laboratory Results - last 24 hr 12/23/20 12/23/20 12/23/20 05:13 05:13 05:14 WBC 12.5 H RBC 4.48 L Hgb 13.5 L Hct 39.0 L MCV 87.1 MCH 30.1 MCHC 34.6 RDW 12.6 Plt Count 187 MPV 10.4 Absolute Nucleated RBC 0.000 Nucleated RBC % (auto) 0.0 Sodium 138 Potassium 4.3 Chloride 105 Carbon Dioxide 25 Anion Gap 12 BUN 11 Creatinine 0.81 Estim Creat Clear Calc 121.7 Estimated GFR > 60 Random Glucose 112 D Calcium 8.9 Total Bilirubin 2.6 H Direct Bilirubin 0.8 H AST 25 D ALT 99 H Alkaline Phosphatase 47 D Total Protein 6.0 L Albumin 3.6 Microbiology Microbiology Results: Microbiology 12/22/20 07:48 Blood Culture - Preliminary Blood - Venous No growth after 24 hours. 12/22/20 08:11 Blood Culture - Preliminary Blood - Venous Quality Stroke Does the patient have a stroke diagnosis?: No VTE Prior VTE?: No VTE Risk Level:: Medical - low VTE Device Contraindication: N/A - Device Ordered VTE Drug Contraindication: Treatment Not Indicated Assessment and Plan (1) Acute and chronic respiratory failure with hypoxia: Status: Acute (2) Aspiration pneumonia due to regurgitated gastric secretions: Status: Acute (3) Drug overdose: Status: Acute (4) SVT (supraventricular tachycardia): Status: Acute Assessment and Plan: a 40 years old male who presented to the hospital with overdose. Developed aspiration pneumonia and transferred from ICU with no need for intubation. Acute hypoxic respiratory failure Aspiration pneumonia , pneumonitis Pending blood cultures Continue IV steroids continue IV Zosyn Wean oxygen down as tolerated Hemoptysis Reporting streaks of blood when he coughs Likely secondary to infection, hold anticoagulation Continue to monitor SVT Heart rate increased into 200s Responded well to treatment with adenosine Cut down caffeine Received a small dose of metoprolol Keep on telemetry Drug abuse Overdose No evidence of withdrawal Pending addiction team evaluation transaminitis Likely secondary to hypoxia after overdose Trending down, bilirubin lagging behind DVT PPX Early ambulation
[2020-12-23] MEDS: Metoprolol Tartrate 25 MG TABLET PO (14:17)
[2020-12-23] MEDS: Piperacillin Sodium/Tazobactam 3.375 GM in 0.9 % Sodium Chloride 50 ML IV (20:44)
[2020-12-24] VITALS (9 sets, daily range): BP systolic 106–120; BP diastolic 56–80; PULSE 74–107; RESP 15–18; TEMP 36.8–37.2; O2SAT 94–96; BMI 26.9
[2020-12-24] MEDS: Piperacillin Sodium/Tazobactam 3.375 GM in 0.9 % Sodium Chloride 50 ML IV ×2 (03:47→08:11)
[2020-12-24 07:04] LABS: Anion Gap 13 (12-20); Blood Urea Nitrogen 11 mg/dL (9-16); Calcium 9.4 mg/dL (8.4-10.2); Carbon Dioxide 24 mmol/L (22-29); Chloride 106 mmol/L (96-108); Creatinine Clr Calc Pharmacy 108.8; Estimated Glomerular Filt Rate > 60; Glucose Random 145 mg/dL (60-115); Potassium 4.3 mmol/L (3.3-5.1); Sodium 139 mmol/L (135-145)
[2020-12-24] MEDS: methylPREDNISolone Sod Succ 40 MG/ML VIAL IVPUSH (08:11)
[2020-12-24] MEDS: Famotidine/PF 20 MG/2 ML VIAL IVPUSH ×2 (08:11→19:59)
--- NOTE | 2020-12-24 10:18 | CA_ITS ---
Transthoracic Echocardiogram Patient (Last, First, Middle): Ariel White, Gender: Male Date of : 1980 Age: 40 Procedure Date: 12/24/2020 Procedure Type: Transthoracic Echocardiogram Location: [facility] Height: 167.64 cm Weight: 75.3 kg BSA: 1.85 m2 Heart Rate: bpm BP: 106 / [address] Commissioner: BRANDYN/PIPER Referring MD: Laith Baer MD Symptoms: tachyarrythmia Study Quality: Good ECG Rhythm: Sinus tachycardia Conclusions: - The left ventricular systolic function is mildly decreased. The calculated ejection fraction is 48% by biplane method. - Ill defined density attached to the tricuspid valve (1 x 0.9cm),on the atrial side, suspicious for vegetation. - There is trace tricuspid valve regurgitation. Findings Left Ventricle Normal left ventricular cavity size. There is normal left ventricular wall thickness. The left ventricular systolic function is mildly decreased. The calculated ejection fraction is 48% by biplane method. There is mild global hypokinesis. Right Ventricle Normal right ventricular cavity size and systolic function. Atria Both atria are normal in size. Aortic Valve There is a normal trileaflet aortic valve. There is no aortic valve stenosis. There is no aortic valve regurgitation. Mitral Valve The mitral valve appears normal. There is no mitral valve regurgitation. There is no mitral valve stenosis. Pulmonic Valve The pulmonic valve was not well visualized. Tricuspid Valve Normal tricuspid valve structure. There is trace tricuspid valve regurgitation. The pulmonary artery systolic pressure is normal. Ill defined density attached to the tricuspid valve (1 x 0.9cm),on the atrial side, suspicious for vegetation. Great Vessels The asc aorta is normal in size. Venous The inferior vena cava is normal in size and collapses greater than 50% with inspiration. Pericardium/Pleural There is no evidence of pericardial effusion. Prior Study Comparison No prior study available for comparison. Measurements 2D Linear Measurements IVSd: 0.88 0.6-0.9/0.6-1.0 cm LVIDd: 4.83 3.9-5.3/4.2-5.9 cm LVIDd Index: 2.61 2.4-3.2/2.2-3.1 cm/m2 LVIDs: 3.50 2.0-3.6 cm LVPWd: 0.79 0.7-1.1 cm Ao Root: 3.20 2.1-3.5 cm LA Diam: 2.70 2.7-3.8/3.0-4.0 cm LAIDs Index: 1.46 1.5-2.3 cm/m2 LV Mass: 167.90 67-162/88-224 g LV Mass Index: 90.76 43-95/49-115 g/m2 LVOT Diam: 2.10 3.0+(-)1.3 cm 2D Systolic Function EF 4C: 49.20 >55% EF 2C: 49.20 >55% EF BiP: 47.90 >55% Mitral Valve MV Pk E: 0.69 MV PK A: 0.73 MV Decel Time: 256.00 E/A: 0.90 E'Lateral: 12.20 E'Medial: 10.80 E/E' Med: 6.40 E/E' Lat: 5.60 PHT: 75.00 MVA PHT: 2.93 Decel Orange: 2.70 Aortic Valve AoV Pk Gideon: 1.12 AoV Mn Gideon: 0.79 AoV VTI: 0.19 AoV Pk Grad: 5.00 Aov Mn Grad: 3.00 ROSIE Cont.VTI: 2.77 LVOT LVOT Pk Gideon: 0.96 LVOT Mn Gideon: 0.60 LVOT VTI: 0.15 LVOT Pk Grad: 4.00 LVOT Mn Grad: 2.00 LVOT Diam: 2.10 LVOT Area: 3.46 Diastolic Function MV Pk E: 0.69 MV Pk A: 0.73 E/A: 0.90 E'Medial: 10.80 E/E' Med: 6.40 E' Laterial: 12.20 E/E' Lat: 5.60 Tricuspid Valve TR Pk Gideon: 1.91 TR Pk Grad: 15.00 RA Press: 3.00 RVSP: 18.00 Great Vessels Aorta Ao Root-2D: 3.20 2.0-3.7 cm Ao Asc: 3.20 2.1-3.4 cm Ao Arch: 2.20 Updated in Other Vendor System with Status of Final José Miguel Bunch MD electronically signed on 12/24/2020 12:02:09 PM with status of Final
[2020-12-24] MEDS: Albuterol/Iprat 2.5/0.5MG 3 ML AMPUL.NEB INHALE ×2 (11:18→17:19)
--- NOTE | 2020-12-24 13:26 | HO.PM.IMPN ---
Subjective Subjective Date of Service: 12/24/20 Interval History: mild sob Cardiovascular Cardiovascular: Reports no additional cardiovascular complaints Respiratory Respiratory: Reports no additional respiratory complaints Physical Exam Vital Signs: Vital Signs: Last Vital Signs Temp 98.9 F 12/24/20 11:32 Pulse 107 H 12/24/20 11:32 Resp 18 12/24/20 11:32 BP 120/78 12/24/20 11:32 Pulse Ox 96 12/24/20 11:32 Oxygen Flow Rate 15 12/22/20 06:55 Body Mass Index 26.9 General: AO X 3, no acute distress Resp: diminished CVS: S1,S2,RRR GI: soft, non tender, non distended Neuro: motor grossly intact Psych: appropriate affect Objective Data Current Medications Generic Name Dose Route Start Last Admin Trade Name Freq PRN Reason Stop Dose Admin Albuterol Sulfate 2.5 mg 12/23/20 10:05 Albuterol Sulfate (0.083%) 2.5 Mg/3 Ml Vial.Neb INHALE RQ4H PRN Shortness of Breath/Wheezing Albuterol/Ipratropium 3 ml 12/23/20 12:00 12/24/20 11:18 Albuterol/Iprat 2.5/0.5mg 3 Ml Ampul.Neb INHALE 3 ml RQ6H DENISE Administration Famotidine 20 mg 12/22/20 10:30 12/24/20 08:11 Famotidine/Pf 20 Mg/2 Ml Vial IVPUSH 20 mg BID DENISE Administration Piperacillin Sod/Tazobactam 50 mls @ 100 mls/hr 12/23/20 21:00 12/24/20 08:48 Sod 3.375 gm/ Sodium Chloride IV Infused Q6H DENISE Infusion Labs CBC & Chem 7: 12/23/20 05:13 12/24/20 05:14 Labs: Laboratory Results - last 24 hr 12/24/20 05:14 Sodium 139 Potassium 4.3 Chloride 106 Carbon Dioxide 24 Anion Gap 13 BUN 11 Creatinine 0.83 Estim Creat Clear Calc 108.8 Estimated GFR > 60 Random Glucose 145 H Calcium 9.4 Microbiology Microbiology Results: Microbiology 12/22/20 07:48 Blood Culture - Preliminary Blood - Venous No growth after 48 hours. 12/22/20 08:11 Blood Culture - Final Blood - Venous Coag negative Staphylococcus Quality Stroke Does the patient have a stroke diagnosis?: No VTE Prior VTE?: No VTE Risk Level:: Medical - low VTE Device Contraindication: N/A - Device Ordered VTE Drug Contraindication: Treatment Not Indicated Assessment and Plan (1) Acute and chronic respiratory failure with hypoxia: Status: Deleted (2) Aspiration pneumonia due to regurgitated gastric secretions: Status: Acute (3) Drug overdose: Status: Deleted (4) SVT (supraventricular tachycardia): Status: Acute Assessment and Plan: a 40 years old male who presented to the hospital with overdose. Developed aspiration pneumonia and transferred from ICU with no need for intubation. Acute hypoxic respiratory failure, toxic encephalopathy Aspiration pneumonia vs pneumonitis blood culture coag negative staph, but has tricuspid vegetation conitnue zosyn ID eval now on room air SVT Heart rate increased into 200s Responded well to treatment with adenosine Cut down caffeine Received a small dose of metoprolol Keep on telemetry opioid dependence denies HCV outpatient follow up
--- NOTE | 2020-12-24 14:08 | P.CNID_ITS ---
History of Present Illness Data of Consult Service Date: 12/24/20 Requesting physician: Laith Baer Primary Care Provider: Unknown Physician HPI Reason for consult: bacteremia,tricuspid valve vegetation?old or new He presents to ER after fell down at friends house after use of heroin. He had sleepiness after but woke up He had fluffy infiltrates and was given IV Zosyn Blood cultures coagulase negative staph Review of Systems Review of Systems: Yes all other systems are reviewed and are negative PMFSH Past Medical History Medical History Asthma Hepatitis C Family History Family history: reviewed and not pertinent Social History Social History Household Members: Friend(s) Housing: Apartment Do you presently have visiting nurse or other home services: No Alcohol intake: never Patient Tobacco Use Status: Current everyday Tobacco user Tobacco use type: Cigarette Cigarettes Per Day: 5 Smoked in Last 30 Days: Yes e-Cigarette/Vaping Use: Never Used Patient Interested in Nicotine Replacement: No Patient Given Instructions on How to Stop Smoking: Yes Date Education Initiated: 12/22/20 Use of substances other than those prescribed or required for medical reasons: Yes Substance Use Type: Heroin and Marijuana Substance Use Frequency: Occasionally Last Used Substance: Just Prior to Admission Currently Displaying Signs/Symptoms of Drug Intoxication Withdrawal: No Any prior treatment program specific to substance use: No Have you been hit, kicked, punched, or otherwise hurt by someone within the past year? If so, by whom?: No Do you feel safe in your current relationship?: No Current Relationship Is there a partner from a previous relationship who is making you feel unsafe now?: No Are you made to feel afraid or neglected: No Spiritual Healthcare Practices: none per patient Nondenominational Healthcare Practices: none per patient Cultural Healthcare Practices: none per patient Advance Directives: No Advance Directives Information Provided: No Advance Directives on File: No Do you have thoughts of harming others: None Do you have a plan to hurt others: No Plan Recently lost weight without trying: No Eating poorly because of decreased appetite: No Nutrition Risks: No Nutritional Risk Poor oral hygiene: Yes service: No Current occupational status: employed Meds Allergies Allergy/AdvReac Type Severity Reaction Status Date / Time No Known Allergies Allergy Verified 12/22/20 06:44 Active Medications: Current Medications Generic Name Dose Route Start Last Admin Trade Name Freq PRN Reason Stop Dose Admin Albuterol Sulfate 2.5 mg 12/23/20 10:05 Albuterol Sulfate (0.083%) 2.5 Mg/3 Ml Vial.Neb INHALE RQ4H PRN Shortness of Breath/Wheezing Albuterol/Ipratropium 3 ml 12/23/20 12:00 12/24/20 11:18 Albuterol/Iprat 2.5/0.5mg 3 Ml Ampul.Neb INHALE 3 ml RQ6H DENISE Administration Famotidine 20 mg 12/22/20 10:30 12/24/20 08:11 Famotidine/Pf 20 Mg/2 Ml Vial IVPUSH 20 mg BID DENISE Administration Piperacillin Sod/Tazobactam 50 mls @ 100 mls/hr 12/23/20 21:00 12/24/20 08:48 Sod 3.375 gm/ Sodium Chloride IV Infused Q6H DENISE Infusion Physical Exam Vital Signs: Vital Signs: Last Vital Signs Temp 98.9 F 12/24/20 11:32 Pulse 107 H 12/24/20 11:32 Resp 18 12/24/20 11:32 BP 120/78 12/24/20 11:32 Pulse Ox 96 12/24/20 11:32 Oxygen Flow Rate 15 12/22/20 06:55 Body Mass Index 26.9 Const: General: cooperative Orientation/consciousness: patient oriented x3 HENMT: Head: Yes normal to inspection Mouth: Normal oral and palatal mucosa present Resp: Effort & Inspection: normal respiratory effort Cardio: Other: 06/25 ELIAS Rate: regular rate Rhythm: regular rhythm GI: Palpation (GI): Soft to palpation and nontender Skin: General skin exam: no rashes or lesions noted Neuro: General: patient oriented x3 Extrem: General: Yes normal to inspection Results Labs CBC & Chem 7: 12/23/20 05:13 12/24/20 05:14 Labs: BMP 12/24/20 05:14 Sodium 139 Potassium 4.3 Chloride 106 Carbon Dioxide 24 BUN 11 Creatinine 0.83 Calcium 9.4 Microbiology Microbiology Results: Microbiology 12/22/20 07:48 Blood - Venous Blood Culture - Preliminary No growth after 48 hours. 12/22/20 08:11 Blood - Venous Blood Culture - Final Coag negative Staphylococcus Assessment and Plan (1) Acute respiratory failure with hypoxia: Status: Acute He has likely chemical aspiration ,not bacterial,some inflammatory r esponse to drugs Coagulase negative staph is contaminant Would stop Zosyn Check HIV and Hepatitis C I discussed with Dr Bunch and there is no valve damage and impossible to tell age of mitral vegetation so if can be placed would probably be better to give 2-4 weeks IV (2) Aspiration pneumonia due to regurgitated gastric secretions: Status: Acute
[2020-12-24] MEDS: vancomycin HCL 1,500 MG in 0.9 % Sodium Chloride 500 ML 333.33 MG IV (15:02)
[2020-12-24 15:35] LABS: Erythrocyte Sedimentation Rate 13 MM/HR (0-15)
[2020-12-25] VITALS (7 sets, daily range): BP systolic 115–123; BP diastolic 62–75; PULSE 69–102; RESP 18–20; TEMP 36–37.1; O2SAT 93–97; BMI 26.7
[2020-12-25] MEDS: vancomycin HCL 1,250 MG in 0.9 % Sodium Chloride 250 ML 166.67 MG IV ×2 (02:05→12:16)
[2020-12-25 06:02] LABS: Hematocrit 40.4 % (42-52); Hemoglobin 13.9 g/dl (14.0-18.0); Mean Corpuscular HGB Conc 34.4 g/dl (31.0-36.0); Mean Corpuscular Hemoglobin 30.2 pg (27.0-33.0); Mean Corpuscular Volume 87.6 fL (80-98); Platelet Count 184 X10*3/uL (160-400); Red Blood Count 4.61 X10*6/uL (4.60-5.80); Red Cell Distribution Width 12.9 % (11.0-16.0); White Blood Count 10.2 X10*3/uL (4.8-10.8)
[2020-12-25 06:37] LABS: Alanine Aminotransferase 114 U/L (0-40); Albumin Level 3.7 g/dL (3.5-5.0); Alkaline Phosphatase 44 U/L (39-117); Anion Gap 12 (12-20); Aspartate Amino Transferase 33 U/L (5-37); Bilirubin Direct 0.5 mg/dL (0.0-0.5); Bilirubin Total 1.7 mg/dL (0.0-1.0); Blood Urea Nitrogen 14 mg/dL (9-16); Carbon Dioxide 27 mmol/L (22-29); Chloride 105 mmol/L (96-108); Creatinine Clr Calc Pharmacy 111.5; Estimated Glomerular Filt Rate > 60; Glucose Fasting 86 mg/dL (60-99); Potassium 3.8 mmol/L (3.3-5.1); Sodium 140 mmol/L (135-145); Total Protein 6.1 g/dL (6.5-8.0)
[2020-12-25] MEDS: Albuterol/Iprat 2.5/0.5MG 3 ML AMPUL.NEB INHALE (11:07)
--- NOTE | 2020-12-25 11:42 | HO.PM.IMPN ---
Subjective Subjective Date of Service: 12/25/20 Interval History: no compliants Cardiovascular Cardiovascular: Reports no additional cardiovascular complaints Gastrointestinal Gastrointestinal: Reports no additional gastrointestinal complaints Physical Exam Vital Signs: Vital Signs: Last Vital Signs Temp 96.8 F 12/25/20 11:14 Pulse 98 12/25/20 11:14 Resp 20 12/25/20 11:14 BP 115/75 12/25/20 11:14 Pulse Ox 93 12/25/20 11:14 Oxygen Flow Rate 15 12/22/20 06:55 Body Mass Index 26.7 General: AO X 3, no acute distress Resp: CTA bilateral CVS: S1,S2,RRR GI: soft, non tender, non distended Neuro: motor grossly intact Psych: appropriate affect Objective Data Current Medications Generic Name Dose Route Start Last Admin Trade Name Freq PRN Reason Stop Dose Admin Albuterol Sulfate 2.5 mg 12/23/20 10:05 Albuterol Sulfate (0.083%) 2.5 Mg/3 Ml Vial.Neb INHALE RQ4H PRN Shortness of Breath/Wheezing Albuterol/Ipratropium 3 ml 12/23/20 12:00 12/25/20 11:07 Albuterol/Iprat 2.5/0.5mg 3 Ml Ampul.Neb INHALE 3 ml RQ6H DENISE Administration Vancomycin HCl 1,250 mg/ 250 mls @ 166.667 mls/hr 12/25/20 01:00 12/25/20 03:52 Sodium Chloride IV Infused Q12H DENISE Infusion Pharmacy Consult 1 each 12/24/20 14:23 Consult Rx Vancomycin Dosing MISCELLANE DAILY PRN Consult order Labs CBC & Chem 7: 12/25/20 05:19 12/25/20 05:19 Labs: Laboratory Results - last 24 hr 12/24/20 12/25/20 12/25/20 14:37 05:19 05:19 WBC 10.2 RBC 4.61 Hgb 13.9 L Hct 40.4 L MCV 87.6 MCH 30.2 MCHC 34.4 RDW 12.9 Plt Count 184 MPV 10.0 Absolute Nucleated RBC 0.000 Nucleated RBC % (auto) 0.0 ESR 13 Sodium 140 Potassium 3.8 Chloride 105 Carbon Dioxide 27 Anion Gap 12 BUN 14 Creatinine 0.81 Estim Creat Clear Calc 111.5 Estimated GFR > 60 Fasting Glucose 86 Calcium 9.0 Total Bilirubin 1.7 H Direct Bilirubin 0.5 AST 33 ALT 114 H Alkaline Phosphatase 44 Total Protein 6.1 L Albumin 3.7 Microbiology Microbiology Results: Microbiology 12/22/20 07:48 Blood Culture - Preliminary Blood - Venous No growth after 48 hours. 12/22/20 08:11 Blood Culture - Final Blood - Venous Coag negative Staphylococcus Quality Stroke Does the patient have a stroke diagnosis?: No VTE Prior VTE?: No VTE Risk Level:: Medical - low VTE Device Contraindication: N/A - Device Ordered VTE Drug Contraindication: Treatment Not Indicated Assessment and Plan (1) Acute and chronic respiratory failure with hypoxia: Status: Deleted (2) Aspiration pneumonia due to regurgitated gastric secretions: Status: Acute (3) Drug overdose: Status: Deleted (4) SVT (supraventricular tachycardia): Status: Acute Assessment and Plan: a 40 years old male who presented to the hospital with overdose. Developed aspiration pneumonia and transferred from ICU with no need for intubation. Acute hypoxic respiratory failure, toxic encephalopathy Aspiration pneumonitis blood culture coag negative staph, likely contaminant zosyn dced now on room air tricuspid vegetation ID appreciated, started on vanco, ?duration SVT Heart rate increased into 200s Responded well to treatment with adenosine Cut down caffeine Received a small dose of metoprolol opioid dependence denies HCV outpatient follow up
[2020-12-25 11:49] LABS: HIV AB/AG Nonreactive (Nonreactive); HIV Num 1 0.09 S/CO (0.00-0.99); ~HepC Num1 13.29 S/CO (0.00-0.79); ~Hepatitis C Antibody Reactive (Nonreactive)
[2020-12-25 11:53] LABS: ~HepC Num1 14.14 S/CO (0.00-0.79); ~Hepatitis C Antibody Reactive (Nonreactive)
[2020-12-25 11:54] LABS: HIV AB/AG Nonreactive (Nonreactive); HIV Num 1 0.18 S/CO (0.00-0.99)
[2020-12-26] MEDS: vancomycin HCL 1,250 MG in 0.9 % Sodium Chloride 250 ML 166.67 MG IV (00:54)
[2020-12-26 03:19] VITALS: BP 115/61; PULSE 75; RESP 18; TEMP 36.3; O2SAT 95
[2020-12-26 06:00] VITALS: BMI 27.5
[2020-12-26 07:13] VITALS: BP 112/70; PULSE 75; RESP 18; TEMP 36.3; O2SAT 96
--- NOTE | 2020-12-26 09:49 | P.DS_ITS ---
DS: Providers Provider Date of Service: 12/26/20 Date of admission: 12/22/20 09:45 Primary care physician: Unknown Physician Consults: 12/23/20 08:07 Addiction Medicine Routine Consulting Provider: Muriel Dey Reason for consultation: Overdose, addiction for your kind eval. 12/24/20 12:43 Consult to Infectious Diseases Routine Consulting Provider: Estrella Lopez Reason for consultation: coag neg staph, but with tricuspid vegetation. DS: Diagnosis Discharge Diagnosis (1) Acute and chronic respiratory failure with hypoxia: Status: Deleted (2) Aspiration pneumonia due to regurgitated gastric secretions: Status: Acute (3) Drug overdose: Status: Deleted (4) SVT (supraventricular tachycardia): Status: Acute DS: Medications Discharge Medications Home Medications: Previous Rx's Medication Instructions Recorded doxycycline hyclate 100 mg PO BID #60 tab 12/26/20 DS: Summary Hospital Course Hospital Course: patient was admitted to the intensive care unit for toxic encephalopathy and acute hypoxic respiratory failure secondary to accidental opiate overdose and aspiration pneumonitis. He was given high-flow oxygen, did not require intu bation. He was given empiric antibiotics initially, was later discontinued as there did not appear to be a bacterial infection. Oxygenation improved fairly quickly and patient was downgraded to medical floor weaned off oxygen. Chest x- ray the next day showed significant improvement in favor of chemical pneumonitis rather than bacterial pneumonia. Course was complicated by supraventricular tachycardia episode which was broken with adenosine. Patient then underwent echocardiogram which showed tricuspid vegetation of questionable age and significance. Patient's blood cultures were negative except for coag-negative staph which was considered contaminant. He was seen by infectious disease who recommended empiric treatment with 1 month of doxycycline. Patient is feeling much better will be discharged home. He is instructed to follow up with primary care doctor for treatment for his chronic hepatitis-C, complete his 1 month of doxycycline, avoid opiates. Time Spent with Patient Time attestation: Total time spent providing and/or coordinating discharge services: Discharge coordination time: Greater than 30 minutes Quality: Stroke Does the patient have a stroke diagnosis?: No Physical Exam Vital Signs: Vital Signs: Last Vital Signs Temp 97.4 F 12/26/20 07:13 Pulse 75 12/26/20 07:13 Resp 18 12/26/20 07:13 BP 112/70 12/26/20 07:13 Pulse Ox 96 12/26/20 07:13 Oxygen Flow Rate 15 12/22/20 06:55 Body Mass Index 27.5 General: AO X 3, no acute distress Resp: CTA bilateral CVS: S1,S2,RRR GI: soft, non tender, non distended Neuro: motor grossly intact Psych: appropriate affect DS: Data Data Completed and Pending Labs on day of discharge: Laboratory Results - last 24 hr 12/24/20 12/25/20 12/25/20 14:37 05:19 05:19 Vancomycin Trough Hepatitis C Ab (EIA) Reactive H Reactive H HIV 1&2 Ab/P24 Ag 4thGn Nonreactive Nonreactive 12/26/20 00:13 Vancomycin Trough 18.0 Hepatitis C Ab (EIA) HIV 1&2 Ab/P24 Ag 4thGn Preliminary micro results at discharge 12/22/20 07:48 Blood Culture - Preliminary Blood - Venous No growth after 48 hours. 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 endocarditis Plan of Treatment: get a pcp for hepatitis C treatment, doxycyline for one month, do not use opiates or other substances Assessment: see above
--- NOTE | 2020-12-26 10:15 | MHC.CM.PN ---
PT CLEARED TO DC HOME TODAY WITH NO SERVICES
[2020-12-28 13:57] LABS: HCV Log PCR 6.23 Log IU/mL (NOT DETECTED); HepC Viral Load 1690000 IU/mL (NOT DETECTED)
== END 2020-12-26 10:15 | disposition home or self-care (01) | DRG 917 ==
LOC: HO.ED 08:12 → HO.ICU 10:04 → HO.IMC 13:25
PROVIDERS: Internal Medicine; Student in an Organized Health Care Education/Training Program; Admitting Provider Internal Medicine Cardiovascular Disease; Emergency Provider Emergency Medicine; Visit Provider Internal Medicine
DX: T40.1X1A Poisoning by heroin, accidental (unintentional), initial encounter (principal); I33.0 Acute and subacute infective endocarditis; J69.0 Pneumonitis due to inhalation of food and vomit; G92 Toxic encephalopathy; J96.21 Acute and chronic respiratory failure with hypoxia; E87.2 Acidosis; R04.2 Hemoptysis; I47.1 Supraventricular tachycardia; R74.01 Elevation of levels of liver transaminase levels; F17.210 Nicotine dependence, cigarettes, uncomplicated; B19.20 Unspecified viral hepatitis C without hepatic coma; Z71.6 Tobacco abuse counseling; I48.91 Unspecified atrial fibrillation; D72.829 Elevated white blood cell count, unspecified; Y92.9 Unspecified place or not applicable; Z20.822 Contact with and (suspected) exposure to COVID-19
CPT/HCPCS: 36415; 70450; 71045; 80048; 80076; 80202; 80307; 82077; 83605; 83735; 83880; 84443; 84484; 85025; 85027; 85610; 85652; 85730; 86803; 87040; 87147; 87205; 87389; 87522; 87635; 93005; 93306; 94640; 94644; 94645; 99285; J0153; J1940; J2370; J2405; J2543; J2920; J2930; J3370; J3475